=== PATIENT | female | born 1990 | race Two or more races ===

== ENCOUNTER → 2024-07-26 | Outpatient (CLI) | payer MEDICAID, SELFPAY ==
--- NOTE | 2024-07-26 15:17 | XR_ITS ---
Examination: Knee, right , 3 views Technique: Knee AP, lateral, oblique 3 views Date and time of exam: July 26, 2024 1649 hours INDICATIONS: Twisting injury to the knee March 2024, history right knee surgery 2021, persistent knee pain FINDINGS: Mild osteopenia Mild narrowing medial joint space No fracture or dislocation IMPRESSION: Mild narrowing medial joint space
== END | disposition home or self-care (01) ==
PROVIDERS: PCP Nurse Practitioner Family; Referring Provider Nurse Practitioner Family; Visit Provider Nurse Practitioner Family
DX: M25.861 Other specified joint disorders, right knee (principal)
CPT/HCPCS: 73562